=== PATIENT | male | born 1940 | race African-American/Black ===

== ENCOUNTER 2018-11-21 21:06 | Inpatient (IN) | payer SELFPAY ==
[~2018-11-21] VITALS: Ht 180.3 cm; Wt 69.4 kg
[2018-11-21 21:36] LABS: CHLORIDE 112 mEq/L (98-107)
[2018-11-21 21:39] LABS: INR 1.1
[2018-11-21 21:40] LABS: BASOPHILS % 0.6 % (0.0-2.0); HEMATOCRIT. 39.1 % (42.0-52.0); HEMOGLOBIN. 12.9 g/dL (14.0-18.0); LYMPHOCYTES % 40.9 % (20.0-50.0); MEAN CORPUSCULAR HEMOGLOBIN 29.7 pg (28.0-32.0); MEAN CORPUSCULAR VOLUME 90.2 fL (80.0-94.0); MEAN PLATELET VOLUME 7.7 fl (7.4-10.4); MONOCYTES % 7.2 % (2.0-8.0); NEUTROPHILS % 49.3 % (40.0-76.0); PLATELET 246 x1000/uL (130-400); RED BLOOD CELL COUNT 4.33 mill/uL (4.7-6.1); RED CELL DISTRIBUTION WIDTH 15.8 % (11.6-14.6)
[2018-11-21 21:41] LABS: ETHANOL BLOOD 17 mg/dL
[2018-11-21 21:44] LABS: LDL CHOLESTEROL 94 mg/dL (5-100)
[2018-11-21] MEDS ORDERED: ASPIRIN 325MG EC TABLET PO ONE (22:00)
[2018-11-21 22:16] LABS: CLARITY URINE CLEAR (CLEAR); COLOR URINE YELLOW (YELLOW); KETONES URINE TRACE (NEGATIVE); LEUKOCYTE ESTERASE URINE NEGATIVE (NEGATIVE); NITRITE URINE NEGATIVE (NEGATIVE); OCCULT BLOOD URINE NEGATIVE (NEGATIVE); PROTEIN URINE TRACE (NEGATIVE); SPECIFIC GRAVITY URINE 1.029 (1.005-1.030)
[2018-11-21 22:25] LABS: *BARBITURATES SCREEN URINE NEGATIVE (NEGATIVE); *BENZODIAZEPINES SCREEN URINE NEGATIVE (NEGATIVE)
[2018-11-21 22:26] LABS: *AMPHETAMINES SCREEN URINE NEGATIVE (NEGATIVE); *COCAINE SCREEN URINE NEGATIVE (NEGATIVE); CANNABINOID URINE SCREEN NEGATIVE (NEGATIVE); METHADONE URINE SCREEN NEGATIVE (NEGATIVE); OPIATES URINE SCREEN NEGATIVE (NEGATIVE); PHENCYCLIDINE URINE SCREEN NEGATIVE (NEGATIVE)
[2018-11-21] MEDS ORDERED: ENOXAPARIN 60MG/0.6ML SYR SUBCUT ONE (23:15)
[2018-11-22 00:58] VITALS: BP_SYST 143; BP_DIAS 59; BP_DIAS 80
[2018-11-22 04:00] VITALS: BP 133/75
[2018-11-22 06:58] LABS: HEMATOCRIT 38.8 % (42.0-52.0); HEMOGLOBIN 12.5 g/dL (14.0-18.0); MEAN CORPUSCULAR VOLUME 90.3 fL (80.0-94.0); PLATELET 238 x1000/uL (130-400); RED CELL DISTRIBUTION WIDTH 15.9 % (11.6-14.6)
[2018-11-22 07:07] LABS: CHLORIDE 111 mEq/L (98-107)
[2018-11-22 08:00] VITALS: BP 129/81
[2018-11-22] MEDS ORDERED: ONDANSETRON HCL 4MG/2ML INJ IV PRN (08:30)
[2018-11-22] MEDS ORDERED: ACETAMINOPHEN 325MG TABLET PO PRN (08:30)
[2018-11-22] MEDS ORDERED: FUROSEMIDE 40MG/4ML VIAL IVP SCH (09:00)
[2018-11-22] MEDS ORDERED: LISINOPRIL 20MG TABLET PO SCH (09:00)
[2018-11-22] MEDS ORDERED: ASPIRIN 325MG EC TABLET PO SCH (09:00)
[2018-11-22] MEDS: ENOXAPARIN 40MG/0.4ML SYR SUBCUT SCH (09:32)
[2018-11-22] MEDS: CARVEDILOL 3.125 MG TABLET PO SCH ×2 (09:33→20:28)
[2018-11-22 12:00] VITALS: BP 118/67
[2018-11-22 16:00] VITALS: BP 136/86
[2018-11-22] MEDS ORDERED: NICOTINE 14MG PATCH TD SCH (17:00)
[2018-11-22 20:00] VITALS: BP 143/79
[2018-11-22] MEDS ORDERED: ATORVASTATIN CALCIUM 40MG TABLET PO SCH (21:00)
[2018-11-23] VITALS: BP 134/80
[2018-11-23 04:00] VITALS: BP 121/71
[2018-11-23 06:34] LABS: BASOPHILS % 0.4 % (0.0-2.0); EOSINOPHILS % 3.6 % (0.0-5.0); HEMATOCRIT. 40.1 % (42.0-52.0); HEMOGLOBIN. 13.3 g/dL (14.0-18.0); LYMPHOCYTES % 52.5 % (20.0-50.0); MEAN CORPUSCULAR HEMOGLOBIN 29.7 pg (28.0-32.0); MEAN CORPUSCULAR VOLUME 89.8 fL (80.0-94.0); MEAN PLATELET VOLUME 8.1 fl (7.4-10.4); MONOCYTES % 8.8 % (2.0-8.0); NEUTROPHILS % 34.7 % (40.0-76.0); PLATELET 261 x1000/uL (130-400); RED BLOOD CELL COUNT 4.46 mill/uL (4.7-6.1)
[2018-11-23 06:36] LABS: CHLORIDE 107 mEq/L (98-107)
[2018-11-23 08:00] VITALS: BP 142/85
[2018-11-23] MEDS ORDERED: CLOPIDOGREL 75MG TABLET PO SCH (09:00)
[2018-11-23] MEDS: CARVEDILOL 3.125 MG TABLET PO SCH (09:00)
[2018-11-23] MEDS: ENOXAPARIN 40MG/0.4ML SYR SUBCUT SCH (09:10)
[2018-11-23 11:59] VITALS: BP 101/61
[2018-11-23 16:00] VITALS: BP 131/86
== END 2018-11-23 17:51 | disposition home or self-care (01) | DRG 45 ==
LOC: ER 21:06 → EDBEDREQSVC 22:01 → EDBEDREQ 22:01 → EDBEDREQTM 22:01 → EDBEDREQ 23:33 → EDBEDREQTM 23:33 → ENRESERV 23:36 → 8WST 11-22 00:51
PROVIDERS: ADMIT Internal Medicine; ATTEND Internal Medicine
DX: I63.9 Cerebral infarction, unspecified (principal); E87.8 Other disorders of electrolyte and fluid balance, not elsewhere classified; I42.9 Cardiomyopathy, unspecified; D64.9 Anemia, unspecified; E78.5 Hyperlipidemia, unspecified; I25.10 Atherosclerotic heart disease of native coronary artery without angina pectoris; F17.210 Nicotine dependence, cigarettes, uncomplicated; Z95.1 Presence of aortocoronary bypass graft; Z95.5 Presence of coronary angioplasty implant and graft; Z86.73 Personal history of transient ischemic attack (TIA), and cerebral infarction without residual deficits; Z71.6 Tobacco abuse counseling; Z79.899 Other long term (current) drug therapy
CPT/HCPCS: 36415; 70551; 71045; 80048; 80061; 80305; 80320; 81003; 83721; 83880; 84443; 84484; 85027; 93005; 93306; 93880; 93970; 96374; 97162; 97166; 99285; J1650; J1940; G0480